=== PATIENT | male | born 1955 | race Caucasian/White ===

== ENCOUNTER → 2017-11-24 09:20 | Outpatient (CLI) | payer OTHER, SELFPAY ==
--- NOTE | 2017-11-24 | DI.ECHO.S_ITS ---
[facility] +---------+ : : [address] : : : : [id number] : : : : Phone: [phone]+ Echocardiogram Report + + :Name: BREANA AUGUSTE Study Date: 11/24/2017 Height: 69 in : :[facility] Weight: 181 lb : : Gender: Male BSA: 2.0 m2 : :: 1955 Age: 62 yrs BP: 134/94 mmHg: :Reason For Study: SOB : : Performed By: Janna Bartholomew : :Referring: ABDOULAYE SINHA : + + Interpretation Summary Moderate-severely dilated left ventricle with severe global hypokinesis and ejection fraction of 15%. Grade IV diastolic dysfunction. Moderately dilated right ventricle with moderate to severely reduced.systolic function. Severely dilated left atrium. Moderately dilated right atrium. Mild mitral regurgitation. Mild tricuspid regurgitation. The right ventricular systolic pressure is estimated at 38 mmHg assuming a right atrial pressure of 15 mm Hg. Procedure: A two-dimensional transthoracic echocardiogram with color flow and Doppler was performed. The study quality was technically good. Most of the acoustic windows were suboptimal, but the best imaging was obtained from the subcostal window. The patient was in normal sinus rhythm during the exam. The patient had frequent PVCs during the exam. Left Ventricle: There is normal left ventricular wall thickness. The left ventricle is moderate-severely dilated. Left ventricular ejection fraction is estimated to be 15%. There is severe global hypokinesis of the left ventricle. Assessment of diastolic parameters indicates a restrictive filling pattern of the left ventricle consistent with significantly elevated filling pressures. Right Ventricle: The right ventricle is moderately dilated. Right ventricular systolic function is moderate to severely reduced. Atria: The left atrium is severely dilated. The right atrium is moderately dilated. The interatrial septum is intact with no evidence for an atrial septal defect. Mitral Valve: The mitral valve is grossly normal. There is mild mitral regurgitation. Aortic Valve: The aortic valve opens well. There is trace aortic regurgitation. Tricuspid Valve: The tricuspid valve leaflets are thin and pliable. There is mild tricuspid regurgitation. The right ventricular systolic pressure is estimated at 38 mmHg assuming a right atrial pressure of 15 mm Hg. Pulmonic Valve: The pulmonic valve is not well seen, but is grossly normal. There is trace pulmonic regurgitation. Great Vessels: The aortic root is normal size. The dimensions of the ascending aorta are normal. The IVC is dilated (diameter is greater than 2.1 cm) and it collapses less than 50% with a sniff. This suggests a high right atrial pressure of 15 mm Hg. Pericardium/ Pleura There is no pericardial effusion. There is no pleural effusion. MMode/2D Measurements & Calculations LVIDd: 6.7 cm Ao root diam: 3.6 cm LVIDs: 6.2 cm Aortic Jxn: 2.7 cm FS: 6.8 % asc Aorta Diam: 3.3 cm EPSS: 2.4 cm Ao Arch Diam (Prox Trans): 3.0 cm IVSd: 1.0 cm LVPWd: 0.99 cm LV grady. diameter/BSA (cm/m^2): 3.4 LV sys. diameter/BSA (cm/m^2): 3.1 LA dimension: 5.0 cm RA long axis: 5.2 cm LA A2 area: 30.9 cm2 RA area: 22.6 cm2 LA A4 area: 30.9 cm2 RA vol: 84.2 ml LA length (vol): 6.3 cm RA : 42.5 ml/m2 LA vol: 127.9 ml IVC diam: 3.0 cm LA vol index: 64.6 ml/m2 RVDd major: 7.1 cm RVD1 (basal): 4.9 cm RVD2 (mid): 4.6 cm Doppler Measurements & Calculations Ao V2 max: 79.7 cm/sec MV E max roe: 84.6 cm/sec Ao V2 mean: 52.7 cm/sec MV A max roe: 24.8 cm/sec Ao max P.5 mmHg MV E/A: 3.4 Ao mean P.3 mmHg Med Peak E' Roe: 1.8 cm/sec Ao V2 VTI: 14.3 cm E/E' med: 47.3 Lat Peak E' Roe: 3.1 cm/sec E/E' lat: 27.7 E/e' average: 37.5 MV dec time: 0.12 sec MV P1/2t: 35.4 msec MR ERO: 0.18 cm2 TR max roe: 241.6 cm/sec MV P1/2t max roe: 85.1 cm/sec TR max P.3 mmHg MVA(P1/2t): 6.2 cm2 PA V2 max: 46.0 cm/sec PA V2 mean: 26.2 cm/sec PA mean P.35 mmHg PA Accel Time: 0.08 sec MR flow rate: 69.5 cm3/sec MR PISA radius: 0.54 cm Electronically signed by: Ophelia Jo on Reading Physician:11/24/2017 11:44 AM
--- NOTE | 2017-11-24 | DI.RAD.S_ITS ---
PROCEDURE: 2 view chest INDICATIONS: Possible CHF TECHNIQUE: 2 views of the chest were acquired. COMPARISON: FINDINGS: Surgical changes and devices: None. Lungs and pleura: No pleural effusions or pneumothorax. Lungs are clear considering mildly reduced inspiration. Mediastinum: Mediastinal contours are normal. Heart size is normal. Bones and chest wall: No suspicious bony abnormalities. Soft tissues appear unremarkable. IMPRESSION: Mildly reduced inspiratory volume, no cardiomegaly seen, no definite acute CHF. Dictated by: Dean Collins M.D. on 11/24/2017 at 9:33 Approved by: Dean Collins M.D. on 11/24/2017 at 9:43
== END ==
PROVIDERS: PCP Internal Medicine; Visit Provider Internal Medicine
DX: R06.02 Shortness of breath (principal)
CPT/HCPCS: 71046; 93306

== ENCOUNTER → 2019-01-22 10:50 | Outpatient (CLI) | payer OTHER, SELFPAY ==
--- NOTE | 2019-01-22 | DI.RAD.S_ITS ---
PROCEDURE: XR KNEE RT 3V INDICATIONS: Patellar tendinitis of right knee/weight bearing, 3 views TECHNIQUE: 3 views of the knee were acquired. COMPARISON: [facility], , KNEE 3V LEFT, 02/12/2012, 13:43. FINDINGS: Bones: No fractures or dislocations. No suspicious bony lesions. There is moderate medial femorotibial joint space narrowing seen, with associated remodeling changes including subchondral sclerosis and osteophyte formation along the jointline. On the sunrise view, there is moderate lateral patellofemoral joint space narrowing seen. Osteophyte formation can be seen along the margins of the patella. There is an enthesophyte seen along the superior aspect of the patella. Soft tissues: No joint effusion. No suspicious soft tissue calcifications. IMPRESSION: Degenerative changes are seen by plain film, are similar to 2012. Dictated by: Judson Miller M.D. on 01/22/2019 at 11:51 Approved by: Judson Miller M.D. on 01/22/2019 at 11:52
== END ==
PROVIDERS: PCP Internal Medicine; Visit Provider Internal Medicine
DX: M76.51 Patellar tendinitis, right knee (principal)
CPT/HCPCS: 73562

== ENCOUNTER → 2019-10-25 20:03 | Outpatient (ROUT) | payer OTHER, SELFPAY ==
[2019-10-25 20:29] LABS: Aspartate Aminotransferase 27 IU/L (17-59); BUN Creatinine Ratio 18.9 (6-22); Blood Urea Nitrogen 14 mg/dL (9-20); Calcium 10.1 mg/dL (8.4-10.2); Carbon Dioxide 24 mmol/L (22-32); Chloride 106 mmol/L (98-107); Cholesterol 174 mg/dL (140-199); Estimated Glomerular Filt Rate > 60.0 mL/min (>60); Glucose 138 mg/dL (80-110); HDL Cholesterol 54 mg/dL (40-60); HEMOLYSIS < 15 (0-50); LDL Cholesterol Calculated 90 mg/dL (<100); Potassium 4.2 mmol/L (3.4-5.1); Sodium 140 mmol/L (137-145); Triglycerides 151 mg/dL (35-150)
== END ==
PROVIDERS: PCP Internal Medicine; Visit Provider Internal Medicine
DX: R97.20 Elevated prostate specific antigen [PSA] (principal); I10 Essential (primary) hypertension; E78.2 Mixed hyperlipidemia
CPT/HCPCS: 80048; 80061; 84153; 84450

== ENCOUNTER 2019-11-03 14:45 | Emergency (ER) | payer OTHER, SELFPAY ==
[2019-11-03 14:51] VITALS: BP 139/77; PULSE 64; RESP 16; TEMP 36.2; O2SAT 99; BMI 26.6
--- NOTE | 2019-11-03 15:07 | DI.CT.S_ITS ---
PROCEDURE: CT HEAD/BRAIN WO CON INDICATIONS: black spots in right visual field TECHNIQUE: Noncontrast 4.5 mm thick angled axial sections acquired from the foramen magnum to the vertex, with coronal and sagittal reformats. For radiation dose reduction, the following was used: automated exposure control, adjustment of mA and/or kV according to patient size. COMPARISON: None. FINDINGS: Image quality: Excellent. CSF spaces: Basal cisterns are patent. No extra-axial fluid collections. Ventricles are normal in size and shape. Brain: No midline shift. No intracranial masses or hemorrhage. Huynh-white matter interface is normal. Skull and face: Calvarium and visualized facial bones are intact, without suspicious lesions. Sinuses: Visualized sinuses and mastoids are clear. IMPRESSION: Normal for age, source of current altered vision symptoms is not seen. Dictated by: Dean Collins M.D. on 11/03/2019 at 15:42 Approved by: Dean Collins M.D. on 11/03/2019 at 15:42
--- NOTE | 2019-11-03 16:51 | PC.NURSE ---
pt normally wears glasses that help his vision when standing further from an object
--- NOTE | 2019-11-03 18:15 | ED.EYEPROB ---
HPI - Eye Problem <KEVIN Velazquez - Last Filed: 11/03/19 19:12> General Chief complaint: Eye Problems Stated complaint: black spots in his vision Time Seen by Provider: 11/03/19 16:56 Source: patient Mode of arrival: Ambulatory Limitations: no limitations History of Present Illness HPI Narrative: The patient is a 64-year-old male nonsmoker with history of hypertension and type 2 diabetes, not following blood sugars who presents with a chief complaint of ?black spots in my vision.He states that his right eye has had ?like really bad floaters all day. He states that they come and go, they are intermittent, gradual onset. He states he can ?see through them since he focuses and that it is like something ?spray painted in my eye.He denies any falls or trauma. He uses glasses, no contacts. He denies any other symptoms, any slurred speech or weakness anywhere. He denies any flashing lights, any haloing of lights, any visual deficit. Related Data Home Medications Medication Instructions Recorded Confirmed Cephalexin (Keflex) 500 mg PO Q6H #0 09/20/09 Oxycodone/Acetaminophen (Percocet 1 - 2 tab PO Q4HP #0 09/22/09 5-325 MG Tablet) Allergies Allergy/AdvReac Type Severity Reaction Status Date / Time INGREDIENT: NKDA - NO KNOWN Allergy Unknown Uncoded 11/03/19 14:54 DRUG ALLERGIES Review of Systems <KEVIN Velazquez - Last Filed: 11/03/19 19:12> Review of Systems Narrative: GENERAL: Denies chills, fatigue, malaise, fever, sweats. HEENT: See HPI RESPIRATORY: Denies dyspnea, cough, wheezing, hemoptysis, sputum. CARDIOVASCULAR: Denies chest pain, palpitations, orthopnea, edema, GASTROINTESTINAL: Denies nausea, vomiting, abdominal pain, diarrhea, constipation, melena. : Denies dysuria, frequency, incontinence, hematuria, urinary retention. MUSCULOSKELETAL: denies weakness, joint pain, or bony pain SKIN: Denies rash, skin lesions, or other NEUROLOGIC: Denies weakness, headache, numbness, change in speech, confusion, seizures, incoordination. PSYCHIATRIC: No concerning psychosocial issues. 12 point review of systems is negative except for those stated above Patient History <KEVIN Velazquez - Last Filed: 11/03/19 19:12> Medical History (Updated 11/03/19 @ 19:07 by KEVIN Velazquez) Hypertension (Acute) Social History Smoking Status: Never smoker Smoking Status: Never smoker alcohol intake frequency: a few times a week Substance Use Type: marijuana Exam <KEVIN Velazquez - Last Filed: 11/03/19 19:12> Narrative Exam Narrative: GENERAL: This is a well-nourished, well-developed patient, in no acute distress HEAD: Atraumatic. Normocephalic. No temporal or scalp tenderness. EYES: Pupils equal round and reactive. Extraocular motions intact. No scleral icterus. No injection or drainage. ENT: Nose without bleeding, purulent drainage or septal hematoma. Throat without erythema, tonsillar hypertrophy or exudate. Uvula midline. Airway patent. NECK: Trachea midline. No JVD or lymphadenopathy. Supple, nontender, no meningeal signs. CARDIOVASCULAR: Regular rate and rhythm RESPIRATORY: No cough. No increased respiratory effort. No accessory muscle use. EXTREMITIES: No clubbing, cyanosis, or edema. No joint tenderness, effusion, or edema noted. BACK: Nontender without deformity or crepitance. No flank tenderness. NEURO: AOx3. SKIN: No rash or erythema. Initial Vital Signs Initial Vital Signs: Vital Signs Temperature 97.1 F L 11/03/19 14:51 Pulse Rate 64 11/03/19 14:51 Respiratory Rate 16 11/03/19 14:51 Blood Pressure 139/77 11/03/19 14:51 Pulse Oximetry 99 11/03/19 14:51 <Markie Reyes MD - Last Filed: 11/04/19 08:05> Initial Vital Signs Initial Vital Signs: Vital Signs Temperature 97.1 F L 11/03/19 14:51 Pulse Rate 64 11/03/19 14:51 Respiratory Rate 16 11/03/19 14:51 Blood Pressure 139/77 11/03/19 14:51 Pulse Oximetry 99 11/03/19 14:51 Scores <KEVIN Velazquez - Last Filed: 11/03/19 19:12> GCS Tripoli coma scale eye opening: Spontaneous Tri[place]i coma scale verbal response: Orientated Hernan coma scale motor response: Obey commands Tri[place]i coma scale total score: 15 NIH Stroke Scale Level of Conciousness: Alert, keenly responsive Ask month/age: Answers both questions correctly. Open/close eyes, close hand: Performs both tasks correctly Best gaze horizontal: Normal Visual jackson: No visual loss Facial palsy: Normal symetrical movement Left arm drift: No drift for full 10 sec Right arm drift: No drift for full 10 sec Left leg drift: No drift for full 10 sec Right leg drift: No drift for full 10 sec Limb ataxia: Absent Sensory on face/arms/legs: Normal, no sensory loss Best language: No aphasia, normal Dysarthria: Normal Extinction or inattention: No abnormality Total NIH Stroke scale score: 0 Course <KEVIN Velazquez - Last Filed: 11/03/19 19:12> Orders Ordered: ED Orders 11/03/19 15:07 CT head/brain wo con Stat Vital Signs Vital signs: Vital Signs - 8 hr 11/03/19 14:51 11/03/19 18:51 Temperature 97.1 F L Pulse Rate 64 54 L Respiratory Rate 16 16 Blood Pressure 139/77 153/84 H Pulse Oximetry 99 100 <Markie Reyes MD - Last Filed: 11/04/19 08:05> Orders Ordered: ED Orders 11/03/19 15:07 CT head/brain wo con Stat Vital Signs Vital signs: Vital Signs - 8 hr 11/03/19 14:51 11/03/19 18:51 Temperature 97.1 F L Pulse Rate 64 54 L Respiratory Rate 16 16 Blood Pressure 139/77 153/84 H Pulse Oximetry 99 100 MDM - Eye Problem <KEVIN Velazquez - Last Filed: 11/03/19 19:12> Lab Data Labs: Point of Care Testing Glucose POC [address] scan - head: Radiologist's Impression: [address] [place] [id number] Scan Report Signed Patient: David Hamlin GONZALOR#: [id number] : 1955cct:[id number] Age/Sex: 64 / MDate of Service: 11/03/19 Loc: ED Accession Number: [id number] Procedure: CT head/brain wo con Ordering Provider: Buffy Nash PROCEDURE: CT HEAD/BRAIN WO CON INDICATIONS: black spots in right visual field TECHNIQUE: Noncontrast 4.5 mm thick angled axial sections acquired from the foramen magnum to the vertex, with coronal and sagittal reformats. For radiation dose reduction, the following was used: automated exposure control, adjustment of mA and/or kV according to patient size. COMPARISON: None. FINDINGS: Image quality: Excellent. CSF spaces: Basal cisterns are patent. No extra-axial fluid collections. Ventricles are normal in size and shape. Brain: No midline shift. No intracranial masses or hemorrhage. Huynh-white matter interface is normal. Skull and face: Calvarium and visualized facial bones are intact, without suspicious lesions. Sinuses: Visualized sinuses and mastoids are clear. IMPRESSION: Normal for age, source of current altered vision symptoms is not seen. Dictated by: Dean Collins M.D. on 11/03/2019 at 15:42 Approved by: Dean Collins M.D. on 11/03/2019 at 15:42 [facility] Narrative Medical decision making narrative: The patient is a 64-year-old male who presents with a chief complaint of transient floaters in his right eye a bit of started today, visual acuities normal. The patient denies any visual complaints, but states it looks like he is looking through spots of spray paint.He denies any flashing lights, denies any visual deficits, has a normal head CT. Given the patient's complaint, I spoke with Dr Reyes regarding further evaluation and or plan. Discussed patient's complaint of ?spray paint spots in the eye and transient floaters which got worse this morning. He states the patient is to follow-up with ophthalmology of an outpatient there is nothing further to do at this point time. Likely proteins or vitreous humor issues in the eye. I discussed at length coming back to the emergency department for any acute vision complaints, decreased vision, haloing of lights, flashing lights which could indicate detachment issues. Gave patient contact information to [facility] dr[facility]. He states he may or may not use it. I encouraged him to follow up with an eye provider regardless. Discussed follow-up with primary care provider as well. Patient has no questions or concerns upon discharge and states understanding of return precautions as well as follow-up care. <Markie Reyes MD - Last Filed: 11/04/19 08:05> Lab Data Labs: Point of Care Testing Glucose POC 121 Discharge Plan Departure Patient Disposition: Home Clinical Impression: Visual complaint Floaters in visual field Qualifiers: Laterality: right Qualified Code(s): H43.391 - Other vitreous opacities, right eye Discharge Date/Time: 11/03/19 18:52 Instructions: DI for Eye Floaters Activity Restrictions/Additional Instructions: Thank you for trusting us with your care today Your CT had no acute findings. 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 I have given the contact information to eye providers. I also suggest following up with primary care provider. Please come back to the emergency department for any acute concerns. This includes flashing lights in your eyes, a decrease in vision, a decrease in peripheral and then central vision etcetera Prescriptions: No Action Cephalexin (Keflex) 500 mg PO Q6H Qty: 0 RF: 0 Oxycodone/Acetaminophen (Percocet 5-325 MG Tablet) 1 - 2 tab PO Q4HP Qty: 0 RF: 0 Referrals: [facility] [Provider Group] [facility] [Provider Group] Todd Rucker MD [Primary Care Provider] -
[2019-11-03 18:51] VITALS: BP 153/84; PULSE 54; RESP 16; O2SAT 100
== END 2019-11-03 18:52 | disposition home or self-care (01) ==
PROVIDERS: Emergency Provider Nurse Practitioner Family; PCP Internal Medicine
DX: H43.391 Other vitreous opacities, right eye (principal); H53.9 Unspecified visual disturbance; I10 Essential (primary) hypertension; E11.9 Type 2 diabetes mellitus without complications
CPT/HCPCS: 70450; 82962; 99283; 99284

== ENCOUNTER → 2020-01-23 13:48 | Outpatient (CLI) | payer OTHER, SELFPAY ==
[2020-01-24 10:24] LABS: COVID19 Sendout Not Detected (Not Detect)
== END ==
PROVIDERS: PCP Internal Medicine; Visit Provider Physician Assistant
DX: Z01.812 Encounter for preprocedural laboratory examination (principal)
CPT/HCPCS: 87635

== ENCOUNTER 2020-01-26 07:34 | Day surgery (SDC) | payer OTHER, SELFPAY ==
--- NOTE | 2020-01-26 | PATH_ITS ---
[facility] Accession Number: [id number] . 01 Material submitted: . PART A: colon - POLYP AT 75CM PART B: colon - POLYP AT 25CM . 02 Diagnosis: A. Colon Polyp at 75 cm, Biopsy: Tubular adenoma. . B. Colon Polyp at 25 cm, Biopsy: Colonic mucosa with focal mucosal hyperplasia. Negative for dysplasia or malignancy. MRV 01/30/2020 1030 Local . 02 Electronically signed: . Guicho Staley MD, PhD, Pathologist NPI- [id number] . 01 Gross description: . A. Received in formalin, labeled polyp at 75 cm, and consists of two rodriguez fragments of soft tissue measuring 0.4 x 0.3 x 0.2 cm in aggregate. The specimen is entirely submitted in cassette A1. B. Received in formalin, labeled polyp at 25 cm, and consists of a 0.3 x 0.3 x 0.3 cm rodriguez-pink fragment of soft tissue, which is entirely submitted in cassette B1. ([id number]) /MRV 01/27/2020 1254 Local . 02 Pathologist provided ICD-10: D12.6, K63.5 . 02 CPT . 768079, 909613 Performed at: 01 [facility] [address], [place], [place] [id number] MD Jase Hicks MD Phone: [phone] Performed at: 02 [facility] [address] [place], [place] [id number] MD Mariella Lei MD Phone: [phone]
[2020-01-26 08:03] VITALS: BP 165/80; PULSE 58; RESP 20; TEMP 36; O2SAT 99; BMI 25.7
[2020-01-26] MEDS: LACTATED RINGERS 1,000 ML 100 ML IV (08:03)
--- NOTE | 2020-01-26 09:14 | PM.HP.1 ---
History of Present Illness History of Present Illness Date Patient Seen: 01/26/20 Time Patient Seen: 09:03 Chief complaint: SCREENING COLONOSCOPY Narrative: Patient is a gentleman here for his 1st colonoscopy. No history of colon cancer in family Patient History Medical History (Updated 01/26/20 @ 09:16 by Jonathon Machado MD) CAD S/P percutaneous coronary angioplasty (Acute) History of congestive heart failure (Acute) Hypertension (Acute) Hypertension (Acute) Surgical History (Updated 01/26/20 @ 09:15 by Jonathon Machado MD) H/O inguinal hernia repair (Acute) Family & Social History Social History: household members spouse Tobacco & Substance use: Smoking Status Never smoker alcohol intake current alcohol intake frequency a few times a week Substance Use Type marijuana Meds Home Medications and Allergies Home Medications Medication Instructions Recorded Confirmed Type amlodipine 5 mg PO DAILY 01/26/20 01/26/20 History lisinopril 40 mg PO DAILY 01/26/20 01/26/20 History metoprolol succinate 50 mg PO DAILY 01/26/20 01/26/20 History spironolactone 25 mg PO DAILY 01/26/20 01/26/20 History Allergies Allergy/AdvReac Type Severity Reaction Status Date / Time INGREDIENT: NKDA - NO KNOWN Allergy Unknown Uncoded 01/26/20 08:12 DRUG ALLERGIES Review of Systems Review of Systems Narrative: Now has a normal ejection fraction ROS: Yes All systems reviewed with the patient and are negative except as otherwise documented Exam Vital Signs (past 8 hours): - 01/26/20 08:03 Temperature 96.8 F L Pulse Rate 58 L Respiratory Rate 20 Blood Pressure 165/80 H Pulse Oximetry 99 Oxygen Delivery Method Room Air Narrative Exam Narrative: Pleasant cooperative patient no apparent distress. Lungs are clear to auscultation. No rales or rhonchi. Heart regular rate and rhythm no murmur gallop. Abdomen is soft nontender without mass. No obvious hernias. Patient is alert and oriented x3. Assessment & Plan Assessment & Plan narrative: The patient for a screening colonoscopy. I have discussed the procedure with them. Risks of bleeding, perforation which would necessitate major operation, failure to find remove all lesions, the potential tattoo were all discussed. All questions were answered. They wished to proceed.
--- NOTE | 2020-01-26 09:17 | PM.PREOP ---
Pre-operative Note COVID-19 COVID-19 status: Negative Result date/Date tested (Pos, Neg/Pending): 01/23/20 Interval Note History & Physical reviewed/Exam performed by Physician: Yes Changes to H&P: No ASA Class (for procedural sedation): III
[2020-01-26] MEDS: fentaNYL 250 MCG/5 ML INJ IV (09:22)
[2020-01-26] MEDS: MIDAZOLAM 5 MG/5 ML VIAL IV (09:32)
--- NOTE | 2020-01-26 09:42 | P.OP.ENDO_ITS ---
Operative Date/Time/Diagnoses Date of procedure: 01/26/20 Time of procedure: 09:42 Pre-op diagnosis: Screening exam. This is his 1st colonoscopy. Post-op diagnosis: same Procedure & Clinicians Study performed: Colonoscopy with cold biopsy Same procedure as scheduled: Yes Indications: Screening Surgeon: Jonathon Machado Procedure Notes SCOAP/Timeout: Performed Procedure in detail: The patient was placed in the left lateral decubitus position and underwent IV sedation directed by the surgeon consisting of fentanyl and Versed. Digital exam was unremarkable. Prostate is normal size for age. No palpable masses.. The scope was inserted and advanced through the rectum into the sigmoid, descending, transverse, and ascending colon. Patient was noted to have sigmoid diverticulosis and a few right-sided diverticuli we ll.. The cecum was reached identified by the ileocecal valve and the appendiceal opening. The ileocecal valve was successfully cannulated. The terminal ileum was normal in appearance. The scope was gradually brought out. Polyps were found at 75 cm and 25 cm from the anal verge. Both of these were under 5 mm quite small and removed with biopsy forceps.. The scope ultimately was retroflexed in the rectum. The appearance was normal except for some small internal hemorrhoids with local irritation most likely from his prep. The scope was removed and the patient tolerated the procedure well. The prep was good Scope withdrawal time: 8 minutes(12 total) Sedation minutes: 21 Findings: diverticulosis (Sigmoid and ascending colon near cecum) and polyp (Two small polyps) Specimen(s): other (Polyps) Complications: none Post-procedure Recommendations: Colonscopy in 5 years (Unless these polyps are not adenomatous in which case 10 years would be more appropriate) Follow up: as needed Disposition: PACU
[2020-01-26 09:44] VITALS: BP 127/72; PULSE 53; RESP 12; O2SAT 97
[2020-01-26 09:48] VITALS: BP 116/75; PULSE 57; RESP 12; TEMP 36.6; O2SAT 96
[2020-01-26 09:53] VITALS: BP 138/75; PULSE 55; RESP 12; O2SAT 97
[2020-01-26 09:59] VITALS: BP 146/80; PULSE 54; RESP 12; TEMP 36.5; O2SAT 98
[2020-01-26 10:10] VITALS: BP 153/90; PULSE 50; RESP 12; TEMP 36.4; O2SAT 100
== END 2020-01-26 10:20 | disposition home or self-care (01) ==
PROVIDERS: PCP Internal Medicine; Referring Provider Specialist; Visit Provider Specialist
PROC: 0DJD8ZZ Inspection of Lower Intestinal Tract, Via Natural or Artificial Opening Endoscopic (ICD-10-PCS; CPT 45378; principal; 2020-01-26 08:45)
DX: Z12.11 Encounter for screening for malignant neoplasm of colon (principal); I10 Essential (primary) hypertension; I25.10 Atherosclerotic heart disease of native coronary artery without angina pectoris; K57.30 Diverticulosis of large intestine without perforation or abscess without bleeding; K64.8 Other hemorrhoids; D12.6 Benign neoplasm of colon, unspecified
CPT/HCPCS: 45380; 99152; J2250; J3010

== ENCOUNTER → 2021-11-08 09:06 | Outpatient (CLI) | payer OTHER, SELFPAY ==
[2021-11-08 10:07] LABS: Hematocrit 35.2 % (41-53); Hemoglobin 12.4 g/dL (13.5-17.5); Mean Corpuscular HGB Conc 35.4 % (30-36); Mean Corpuscular Hemoglobin 32.8 PG (26-34); Mean Corpuscular Volume 92.6 fL (80-100); Platelet Count 186 X10^3/uL (150-400); Red Cell Distribution Width 13.3 % (11.6-14.8); White Blood Cell Count 7.4 X10^3/uL (4.5-11.0)
[2021-11-08 10:18] LABS: Hemoglobin A1C% w Est Avg Glu 6.4 % (4.0-6.0)
[2021-11-08 10:28] LABS: Albumin 4.4 g/dL (3.5-5.0); Albumin Globulin Ratio 1.4 (1.0-2.8); BUN Creatinine Ratio 33.7 (6-22); Bilirubin Total 0.5 mg/dL (0.2-1.3); Blood Urea Nitrogen 30 mg/dL (9-20); Carbon Dioxide 27 mmol/L (22-32); Cholesterol 141 mg/dL (140-199); Estimated Glomerular Filt Rate > 60 mL/min (>60); Globulin 3.1 g/dL (1.7-4.1); Glucose 193 mg/dL (80-110); HEMOLYSIS < 15 (0-50); Total Protein 7.5 g/dL (6.3-8.2)
[2021-11-08 10:42] LABS: Alanine Aminotransferase 18 IU/L (<50); Alkaline Phosphatase 66 U/L (38-126); Aspartate Aminotransferase 24 IU/L (17-59); Calcium 9.4 mg/dL (8.4-10.2); Chloride 101 mmol/L (98-107); HDL Cholesterol 57 mg/dL (40-60); LDL Cholesterol Calculated 78 mg/dL (<100); Potassium 4.9 mmol/L (3.4-5.1); Sodium 137 mmol/L (137-145); Triglycerides 32 mg/dL (35-150); Uric Acid 6.3 mg/dL (3.5-8.5)
[2021-11-08 11:52] LABS: Free T4, Direct Thyroxine 1.43 ng/dL (0.78-2.19)
== END ==
PROVIDERS: PCP Internal Medicine; Referring Provider Internal Medicine; Visit Provider Internal Medicine
DX: E11.59 Type 2 diabetes mellitus with other circulatory complications (principal); I25.10 Atherosclerotic heart disease of native coronary artery without angina pectoris; I50.22 Chronic systolic (congestive) heart failure; M1A.9XX0 Chronic gout, unspecified, without tophus (tophi)
CPT/HCPCS: 36415; 80053; 80061; 83036; 84439; 84443; 84550; 85027

== ENCOUNTER → 2022-02-05 08:48 | Outpatient (CLI) | payer OTHER, SELFPAY ==
[2022-02-05 09:45] LABS: Hematocrit 39.9 % (41-53); Hemoglobin 13.9 g/dL (13.5-17.5); Mean Corpuscular HGB Conc 34.8 % (30-36); Mean Corpuscular Hemoglobin 32.6 PG (26-34); Mean Corpuscular Volume 93.8 fL (80-100); Platelet Count 200 X10^3/uL (150-400); Red Blood Cell Count 4.25 X10^6/uL (4.5-5.9); Red Cell Distribution Width 13.1 % (11.6-14.8); White Blood Cell Count 4.6 X10^3/uL (4.5-11.0)
[2022-02-05 09:46] LABS: Hemoglobin A1C% w Est Avg Glu 5.3 % (4.0-6.0)
[2022-02-05 09:56] LABS: Alanine Aminotransferase 19 IU/L (<50); Albumin 4.2 g/dL (3.5-5.0); Albumin Globulin Ratio 1.4 (1.0-2.8); Alkaline Phosphatase 59 U/L (38-126); Aspartate Aminotransferase 27 IU/L (17-59); Bilirubin Total 0.8 mg/dL (0.2-1.3); Blood Urea Nitrogen 21 mg/dL (9-20); Calcium 9.3 mg/dL (8.4-10.2); Carbon Dioxide 30 mmol/L (22-32); Chloride 98 mmol/L (98-107); Estimated Glomerular Filt Rate > 60 mL/min (>60); Glucose 142 mg/dL (80-110); HEMOLYSIS < 15 (0-50); Sodium 137 mmol/L (137-145); Total Protein 7.2 g/dL (6.3-8.2); Uric Acid 4.4 mg/dL (3.5-8.5)
== END ==
PROVIDERS: PCP Internal Medicine; Referring Provider Internal Medicine; Visit Provider Internal Medicine
DX: E11.59 Type 2 diabetes mellitus with other circulatory complications (principal); I50.22 Chronic systolic (congestive) heart failure; M1A.9XX0 Chronic gout, unspecified, without tophus (tophi)
CPT/HCPCS: 36415; 80053; 83036; 84550; 85027

== ENCOUNTER → 2022-10-27 10:11 | Outpatient (CLI) | payer OTHER, SELFPAY ==
[2022-10-27 10:52] LABS: Add Manual Diff / Slide Review NO; Basophils Absolute Auto 0 /uL (0-100); Basophils Percent Auto 0.7 % (0-2); Eosinophils Absolute Auto 100 /uL (0-450); Eosinophils Percent Auto 1.8 % (2-4); Hematocrit 37.1 % (41-53); Hemoglobin 12.9 g/dL (13.5-17.5); Lymphocytes Absolute Auto 1300 /uL (1100-4500); Lymphocytes Percent Auto 21.6 % (25-40); Mean Corpuscular HGB Conc 34.7 % (30-36); Mean Corpuscular Hemoglobin 32.3 PG (26-34); Mean Corpuscular Volume 93.1 fL (80-100); Monocytes Absolute Auto 600 /uL (0-900); Monocytes Percent Auto 10.3 % (3-14); Neutrophils Absolute Auto 3900 /uL (1500-7000); Neutrophils Percent Auto 65.6 % (50-75); Platelet Count 175 X10^3/uL (150-400); Red Blood Cell Count 3.99 X10^6/uL (4.5-5.9); Red Cell Distribution Width 13.1 % (11.6-14.8)
[2022-10-27 11:06] LABS: Alanine Aminotransferase 22 IU/L (<50); Albumin 4.2 g/dL (3.5-5.0); Albumin Globulin Ratio 1.5 (1.0-2.8); Alkaline Phosphatase 52 U/L (38-126); Aspartate Aminotransferase 29 IU/L (17-59); BUN Creatinine Ratio 15.2 (6-22); Bilirubin Total 0.7 mg/dL (0.2-1.3); Blood Urea Nitrogen 10 mg/dL (9-20); Carbon Dioxide 33 mmol/L (22-32); Chloride 96 mmol/L (98-107); Cholesterol 130 mg/dL (140-199); Estimated Glomerular Filt Rate > 60 mL/min (>60); Globulin 2.8 g/dL (1.7-4.1); Glucose 136 mg/dL (80-110); HDL Cholesterol 58 mg/dL (40-60); HEMOLYSIS < 15 (0-50); LDL Cholesterol Calculated 62 mg/dL (<100); Potassium 4.6 mmol/L (3.4-5.1); Sodium 132 mmol/L (137-145); Triglycerides 50 mg/dL (35-150)
[2022-10-27 11:35] LABS: Thyroid Stimulating Hormone 0.726 uIU/mL (0.47-4.68)
[2022-10-27 17:09] LABS: Microalbumi Creatinin Ratio Ur 21.2 ug/mg CR (<30); Microalbumin Urine Random 0.7 mg/dL (0-1.6)
[2022-10-28 03:21] LABS: Labcorp Hemoglobin (Hb) A1c 5.4 % (4.8-5.6)
== END ==
PROVIDERS: PCP Internal Medicine; Referring Provider Internal Medicine; Visit Provider Internal Medicine
DX: E11.59 Type 2 diabetes mellitus with other circulatory complications (principal); E78.2 Mixed hyperlipidemia; I10 Essential (primary) hypertension
CPT/HCPCS: 36415; 80053; 80061; 82043; 82570; 83036; 84443; 85025

== ENCOUNTER → 2023-04-20 13:51 | Outpatient (CLI) | payer OTHER, SELFPAY ==
[2023-04-20 15:01] LABS: Influenza A - CEPHEID Flu A NEGATIVE (NEGATIVE); Influenza B - CEPHEID Flu B NEGATIVE (NEGATIVE); Respiratory Syncytial Virus Negative (Negative)
[2023-04-20 15:02] LABS: COVID-19 CEPHEID 4-PLEX PCR Negative (Negative)
== END ==
PROVIDERS: PCP Internal Medicine; Visit Provider Internal Medicine
DX: B34.9 Viral infection, unspecified (principal)
CPT/HCPCS: 0241U

== ENCOUNTER → 2024-01-06 09:05 | Outpatient (CLI) | payer OTHER, SELFPAY ==
[2024-01-06 10:07] LABS: Hematocrit 39.8 % (41-53); Hemoglobin 13.8 g/dL (13.5-17.5); Mean Corpuscular HGB Conc 34.6 % (30-36); Mean Corpuscular Hemoglobin 32.3 PG (26-34); Mean Corpuscular Volume 93.4 fL (80-100); Platelet Count 212 X10^3/uL (150-400); Red Blood Cell Count 4.26 X10^6/uL (4.5-5.9); Red Cell Distribution Width 14.4 % (11.6-14.8); White Blood Cell Count 8.2 X10^3/uL (4.5-11.0)
[2024-01-06 10:22] LABS: Hemoglobin A1C% w Est Avg Glu 5.5 % (4.0-6.0)
[2024-01-06 10:50] LABS: Alanine Aminotransferase 19 IU/L (<50); Albumin 4.1 g/dL (3.5-5.0); Albumin Globulin Ratio 1.4 (1.0-2.8); Alkaline Phosphatase 71 U/L (38-126); Aspartate Aminotransferase 25 IU/L (17-59); Bilirubin Total 0.8 mg/dL (0.2-1.3); Blood Urea Nitrogen 19 mg/dL (9-20); Calcium 9.4 mg/dL (8.4-10.2); Carbon Dioxide 27 mmol/L (22-32); Chloride 103 mmol/L (98-107); Cholesterol 172 mg/dL (140-199); Estimated Glomerular Filt Rate > 60 mL/min (>60); Glucose 90 mg/dL (80-110); HDL Cholesterol 58 mg/dL (40-60); HEMOLYSIS < 15 (0-50); LDL Cholesterol Calculated 99 mg/dL (<100); Potassium 4.3 mmol/L (3.4-5.1); Sodium 137 mmol/L (137-145); Total Protein 7.1 g/dL (6.3-8.2); Triglycerides 74 mg/dL (35-150)
[2024-01-06 10:57] LABS: Creatinine Urine Random 98.17 mg/dL
[2024-01-06 10:59] LABS: Microalbumin Urine Random 0.9 mg/dL (0-1.6)
== END ==
PROVIDERS: PCP Internal Medicine; Referring Provider Internal Medicine; Visit Provider Internal Medicine
DX: E11.59 Type 2 diabetes mellitus with other circulatory complications (principal); I50.22 Chronic systolic (congestive) heart failure; E78.2 Mixed hyperlipidemia
CPT/HCPCS: 36415; 80053; 80061; 82043; 82570; 83036; 85027

== ENCOUNTER → 2024-07-28 15:01 | Outpatient (CLI) | payer OTHER, SELFPAY ==
[2024-07-28 15:37] LABS: Mean Corpuscular HGB Conc 34.9 % (30-36); Mean Corpuscular Hemoglobin 33.8 PG (26-34); Mean Corpuscular Volume 96.9 fL (80-100); Platelet Count 176 X10^3/uL (150-400); Red Blood Cell Count 4.44 X10^6/uL (4.5-5.9); Red Cell Distribution Width 13.5 % (11.6-14.8); White Blood Cell Count 7.1 X10^3/uL (4.5-11.0)
[2024-07-28 15:44] LABS: Hemoglobin A1C% w Est Avg Glu 5.8 % (4.0-6.0)
[2024-07-28 15:55] LABS: Alanine Aminotransferase 22 IU/L (<50); Albumin 4.6 g/dL (3.5-5.0); Albumin Globulin Ratio 1.7 (1.0-2.8); Alkaline Phosphatase 63 U/L (38-126); Aspartate Aminotransferase 33 IU/L (17-59); BUN Creatinine Ratio 17.8 (6-22); Bilirubin Total 1.4 mg/dL (0.2-1.3); Blood Urea Nitrogen 18 mg/dL (9-20); Calcium 9.6 mg/dL (8.4-10.2); Carbon Dioxide 29 mmol/L (22-32); Chloride 101 mmol/L (98-107); Estimated Glomerular Filt Rate > 60 mL/min (>60); Globulin 2.7 g/dL (1.7-4.1); Glucose 112 mg/dL (80-110); HEMOLYSIS < 15 (0-50); Potassium 4.4 mmol/L (3.4-5.1); Sodium 139 mmol/L (137-145); Total Protein 7.3 g/dL (6.3-8.2)
== END ==
PROVIDERS: PCP Internal Medicine; Referring Provider Internal Medicine; Visit Provider Internal Medicine
DX: E11.59 Type 2 diabetes mellitus with other circulatory complications (principal); I48.92 Unspecified atrial flutter
CPT/HCPCS: 36415; 80053; 83036; 85027